=== PATIENT | male | born 1985 | race Caucasian/White ===

== ENCOUNTER 2018-06-10 14:22 | Outpatient (CLI) | payer OTHER | END 2018-06-10 14:23 | disposition home or self-care (01) | LOC: SC 14:22 | PROVIDERS: ATTEND Internal Medicine Pulmonary Disease | DX: G47.10 Hypersomnia, unspecified (principal); R41.89 Other symptoms and signs involving cognitive functions and awareness; G47.8 Other sleep disorders | CPT/HCPCS: 99203; 99212 ==

== ENCOUNTER 2018-08-02 19:33 | Outpatient (CLI) | payer OTHER | END 2018-08-02 19:34 | disposition home or self-care (01) | LOC: SC 19:33 | PROVIDERS: ATTEND Internal Medicine Pulmonary Disease | DX: R53.83 Other fatigue (principal); G47.8 Other sleep disorders | CPT/HCPCS: 95810 ==

== ENCOUNTER 2018-09-25 08:13 | Outpatient (CLI) | payer OTHER | END 2018-09-25 08:14 | disposition home or self-care (01) | LOC: SC 08:13 | PROVIDERS: ATTEND Nurse Practitioner Family | DX: R53.83 Other fatigue (principal); G47.00 Insomnia, unspecified | CPT/HCPCS: 99212; 99214 ==